=== PATIENT | female | born 1945 | race Caucasian/White ===

== ENCOUNTER → 2021-01-30 12:46 | Outpatient (CLI) | payer MEDICARE, BC, SELFPAY ==
--- NOTE | 2021-01-30 11:30 | CER_PTH ---
PATIENT: JANENE JEAN-BAPTISTE LOC: [facility] U#:[id number] AGE/SX: 79/F ROOM: RE01/30/[address]: Dr. Esvin Cronejo MD : 1945 BED: DIS: SPEC #: [id number] RECD: 01/31/21 07:48 STATUS: CHIARA NAYELI #: [id number] BRAYDEN: 01/30/21 11:[address]: Esvin Cornejo DEPT: SURGICAL PATHOLOGY RECD BY: Randee Luther Tissues: Uterine cervix, NOS Procedures: Surgery Specimen Level IV HEADER OPERATION: Polypectomy PRE-OP DIAGNOSIS: N84.1 TISSUE SUBMITTED: Cervical polyp MICROSCOPIC DIAGNOSIS Cervical polyp, polypectomy: Benign endocervical polyp. SJ:miguel angel 02/03/2021 MICROSCOPIC DESCRIPTION Slides are reviewed. GROSS DESCRIPTION Received in fixative is one container labeled with the patient's name and designated cervical polyp. The specimen consists of a garcia-pink polyp measuring 0.5 x 0.4 x 0.2 cm. The specimen is totally submitted in one cassette. / SJ:rg 01/31/21 TC:5 [facility]: [id number]
== END ==
PROVIDERS: Visit Provider Obstetrics & Gynecology
DX: N84.1 Polyp of cervix uteri (principal)
CPT/HCPCS: 88305